=== PATIENT | male | born 1970 | race Caucasian/White ===

== ENCOUNTER 2017-10-13 01:40 | Emergency (ER) | payer SELFPAY ==
[2017-10-13] MEDS ORDERED: LIDOCAINE 1% MPF 5 ML VIAL ONE ×2 (02:11→02:28)
[2017-10-13] MEDS ORDERED: BUPIVACAINE 0.5% PF 10 ML VIAL ONE (02:12)
--- NOTE | 2017-10-13 02:55 | ER ---
Nurse's Notes [facility] Name: Wilian Bell Age: 47 yrs Sex: Male : 1970 Arrival Date: 10/13/2017 Time: 01:41 Bed 23 Private MD: Diagnosis: Laceration without foreign body of thumb without damage to nail-Left Presentation: 10/13 01:49 Presenting complaint: Patient states: I was sharpening a machete and I missed and it tl2 cut my left hand. 2 inch laceration noted above thumb on left hand, moderately bleeding, only controlled with pressure. Pt able to move all fingers on L hand. Transition of care: patient was not received from another setting of care. Complicating Factors: There are no complicating factors for this patient. Onset of symptoms was October 13, 2017 at 01:20. Risk Assessment: Do you want to hurt yourself or someone else? Patient reports no desire to harm self or others. Initial Sepsis Screen: Does the patient meet any 2 criteria? No. Patient's initial sepsis screen is negative. Does the patient have a suspected source of infection? No. Patient's initial sepsis screen is negative. Care prior to arrival: None. 01:49 Method Of Arrival: Ambulatory tl2 01:49 Acuity: GIGI 4 tl2 Triage Assessment: 01:52 General: Appears in no apparent distress. Behavior is calm, cooperative, appropriate tl2 for age. Pain: Complains of pain in dorsal aspect of proximal phalanx of left thumb. Injury Description: Laceration sustained to dorsal aspect of proximal phalanx of left thumb is clean, 2.6 to 7.5 cm long, bleeding moderately, was sustained 30-60 minutes ago. is bleeding moderately. Historical: - Allergies: 01:52 No Known Allergies; tl2 - Home Meds: 01:52 Xanax Oral [Active]; Prozac Oral [Active]; Adderall XR Oral [Active]; tl2 - PMHx: 01:52 Anxiety; tl2 - Immunization history:: Adult Immunizations up to date, Last tetanus immunization: < 5 years ago. - Social history:: Smoking status: Patient uses tobacco products, smokes one-half pack cigarettes per day. - Ebola Screening: : No symptoms or risks identified at this time. Screenin:51 Abuse screen: Denies threats or abuse. Denies injuries from another. Nutritional mg2 screening: No deficits noted. Tuberculosis screening: No symptoms or risk factors identified. Fall Risk None identified. Assessment: 01:52 General: Appears comfortable, Behavior is calm, cooperative. Pain: Complains of pain in mg2 left hand Pain does not radiate. Pain currently is 7 out of 10 on a pain scale. Quality of pain is described as aching, Pain began suddenly, 30 min ago. Is intermittent. Neuro: Level of Consciousness is awake, alert, obeys commands, Oriented to person, place, time, situation. Cardiovascular: Capillary refill < 3 seconds Patient's skin is warm and dry. Respiratory: Airway is patent Respiratory effort is even, unlabored, Respiratory pattern is regular, symmetrical. GI: No signs and/or symptoms were reported involving the gastrointestinal system. : No signs and/or symptoms were reported regarding the genitourinary system. EENT: No signs and/or symptoms were reported regarding the EENT system. Derm: Skin is intact, Skin is pink, warm \T\ dry. normal. Musculoskeletal: Circulation, motion, and sensation intact. Range of motion: intact in all extremities. Injury Description: Laceration sustained to dorsal aspect of proximal phalanx of left thumb is clean, 2.6 to 7.5 cm long, bleeding moderately, is bleeding moderately a dressing was applied. Vital Signs: 01:52 BP 132 / 91; Pulse 84; Resp 20; Temp 97.8(O); Pulse Ox 100% on R/A; Weight 72.57 kg; tl2 Height 5 ft. 8 in. (172.72 cm); Pain 0/10; 01:52 Body Mass Index 24.33 (72.57 kg, 172.72 cm) tl2 ED Course: 01:41 Patient arrived in ED. ds1 01:44 Jorge Broderick, RAZIA is Primary Nurse. mg2 01:45 Erick Bhatt PA is PHCP. cp 01:45 Jose Armando Singh MD is Attending Physician. cp 01:51 Triage completed. tl2 01:51 Patient has correct armband on for positive identification. Door closed. mg2 01:52 Arm band placed on right wrist. tl2 02:32 X-ray completed. Portable x-ray completed in exam room. Patient tolerated procedure mh1 well. 02:37 XRAY Hand LEFT 3 View In Process Unspecified. EDMS 03:15 No provider procedures requiring assistance completed. Patient did not have IV access mg2 during this emergency room visit. Orthoglass splint: Thumb spica splint applied on left forearm. Sling applied to left arm. Wound care: to laceration located on dorsal aspect of proximal phalanx of left thumb was cleaned with Betadine, irrigated with dressed with Neosporin, 4X4s, sutured with prolene 7 stitches made. Administered Medications: 03:02 Drug: Marcaine (0.5 %) 5 ml Volume: 10 ml; Route: Infiltration; mg2 03:15 Follow up: Response: No adverse reaction; Pain is decreased mg2 03:03 Drug: Lidocaine (1 %) 5 ml Volume: 20 ml; Route: Infiltration; mg2 03:15 Follow up: Response: No adverse reaction; Pain is decreased mg2 Outcome: 02:54 Discharge ordered by MD. cp 03:17 Discharged to home ambulatory. mg2 03:17 Condition: good 03:17 Discharge instructions given to patient, family, Instructed on discharge instructions, follow up and referral plans. Demonstrated understanding of instructions, follow-up care. 03:17 Patient left the ED. mg2 Signatures: Dispatcher [employer] EDMS Allyson Coles mh1 Radha Horta ds1 Erick Bhatt PA PA cp Knox, Taylor, RN RN tl2 Jorge Broderick RN RN mg2
--- NOTE | 2017-10-13 02:55 | EDPHYS ---
Physician Documentation [facility] Name: Wilian Bell Age: 47 yrs Sex: Male : 1970 Arrival Date: 10/13/2017 Time: 01:41 Bed 23 Private MD: ED Physician Jose Armando Singh HPI: 10/13 02:05 This 47 yrs old Male presents to ER via Ambulatory with complaints of cp Laceration To Hand. 02:05 The patient has a laceration occurred at home, and there are no complicating factors. cp The injury was sharpening machete. The laceration(s) is(are) located on the dorsal aspect left thumb. Onset: The symptoms/episode began/occurred just prior to arrival. Associated signs and symptoms: Pertinent positives: heavy bleeding, Pertinent negatives: numbness distal to injury, suspected foreign body. Historical: - Allergies: 01:52 No Known Allergies; tl2 - Home Meds: 01:52 Xanax Oral [Active]; Prozac Oral [Active]; Adderall XR Oral [Active]; tl2 - PMHx: 01:52 Anxiety; tl2 - Immunization history:: Adult Immunizations up to date, Last tetanus immunization: < 5 years ago. - Social history:: Smoking status: Patient uses tobacco products, smokes one-half pack cigarettes per day. - Ebola Screening: : No symptoms or risks identified at this time. ROS: 02:10 Constitutional: Negative for body aches, chills, fever, poor PO intake. cp 02:10 Eyes: Negative for injury, pain, redness, and discharge. cp 02:10 Cardiovascular: Negative for chest pain, edema, palpitations. 02:10 Respiratory: Negative for cough, shortness of breath, wheezing. 02:10 Abdomen/GI: Negative for abdominal pain, nausea, vomiting, and diarrhea. 02:10 Skin: Positive for laceration(s), of the dorsal aspect left thumb. 02:10 Neuro: Negative for numbness. 02:10 All other systems are negative. Exam: 02:15 Head/Face: Normocephalic, atraumatic. cp 02:15 Constitutional: The patient appears in no acute distress, alert, awake, non-toxic, well developed, well nourished. 02:15 Eyes: Periorbital structures: appear normal, Conjunctiva: normal, no exudate, no cp injection, Lids and lashes: appear normal, bilaterally. 02:15 ENT: External ear(s): are unremarkable, Nose: is normal, Mouth: is normal. 02:15 Chest/axilla: Inspection: normal. 02:15 Cardiovascular: Rate: normal. 02:15 Respiratory: the patient does not display signs of respiratory distress, Respirations: normal, no use of accessory muscles, no retractions, no shallow respirations. 02:15 Abdomen/GI: Exam negative for discomfort, distension, guarding, Inspection: abdomen appears normal. 02:15 Musculoskeletal/extremity: Perfusion: the extremity is normally perfused throughout, Sensation intact. Tendon exam: specific tendon testing normal through active and passive range of motion 02:15 Skin: injury, laceration(s), the wound is approximately 6 cm(s), of the dorsum left thumb, that can be described as clean, linear, with moderate bleeding. Vital Signs: 01:52 BP 132 / 91; Pulse 84; Resp 20; Temp 97.8(O); Pulse Ox 100% on R/A; Weight 72.57 kg; tl2 Height 5 ft. 8 in. (172.72 cm); Pain 0/10; 01:52 Body Mass Index 24.33 (72.57 kg, 172.72 cm) tl2 Procedures: 02:50 Splinting: Splint applied to left thumb using thumb spica. applied by nurse. Examined cp by me, post splint application: neurovascular intact, Patient tolerated well. Laceration: 02:48 Wound Repair of 6cm ( 2.4in ) subcutaneous laceration to dorsal aspect left thumb. cp Linear shaped.. Distal neuro/vascular/tendon intact. Anesthesia: Wound infiltrated with 5 mls of Lido/Marcaine. Wound prep: Moderate cleansing by me, Wound irrigation by me, Wound explored moderately. Skin closed with 7 4-0 Prolene using interrupted sutures and sterile technique. Dressed with Bacitracin, 4x4's, non-adherent dressing. Patient tolerated well. MDM: 01:46 Patient medically screened. cp 02:00 Differential diagnosis: superficial laceration, tendon injury, vascular injury. cp 02:00 Data reviewed: vital signs, nurses notes, radiologic studies, plain films. Test cp interpretation: by ED physician or midlevel provider: plain radiologic studies. Counseling: I had a detailed discussion with the patient and/or guardian regarding: the historical points, exam findings, and any diagnostic results supporting the discharge/admit diagnosis, radiology results, to return to the emergency department if symptoms worsen or persist or if there are any questions or concerns that arise at home. Response to treatment: the patient's symptoms have markedly improved after treatment, and as a result, I will discharge patient. 10/13 02:00 Order name: XRAY Hand LEFT 3 View cp 10/13 02:00 Order name: Prolene, Sutures; Complete Time: 02:26 cp 10/13 02:00 Order name: Dressing - Wound; Complete Time: 02:26 cp 10/13 02:00 Order name: Gloves, Sterile; Complete Time: 02:06 cp 10/13 02:00 Order name: Setup Suture Tray; Complete Time: 02:06 cp Administered Medications: 03:02 Drug: Marcaine (0.5 %) 5 ml Volume: 10 ml; Route: Infiltration; mg2 03:15 Follow up: Response: No adverse reaction; Pain is decreased mg2 03:03 Drug: Lidocaine (1 %) 5 ml Volume: 20 ml; Route: Infiltration; mg2 03:15 Follow up: Response: No adverse reaction; Pain is decreased mg2 Disposition: 10/13/17 02:54 Discharged to Home. Impression: Laceration without foreign body of thumb without damage to nail - Left. - Condition is Stable. - Discharge Instructions: Laceration Care, Adult. - Medication Reconciliation Form, Thank You Letter, Antibiotic Education, Prescription Opioid Use form. - Follow up: Private Physician; When: 7 - 10 days; Reason: Staple/Suture removal. - Problem is new. - Symptoms have improved. Addendum: 10/17/2017 20:24 Co-signature as Attending Physician, Jose Armando Singh MD I agree with the assessment and w a plan of care. Signatures: Dispatcher [employer] EDMS Erick Bhatt PA PA cp Knox, Taylor, RN RN tl2 Jose Armando Singh MD MD mn Jorge Broderick RN RN mg2 Corrections: (The following items were deleted from the chart) 10/13 03:17 02:54 10/13/2017 02:54 Discharged to Home. Impression: Laceration without foreign body mg2 of thumb without damage to nail - Left. Condition is Stable. Forms are Medication Reconciliation Form, Thank You Letter, Antibiotic Education, Prescription Opioid Use. Follow up: Private Physician; When: 7 - 10 days; Reason: Staple/Suture removal. Problem is new. Symptoms have improved. cp
[2017-10-13 03:23] VITALS: BP 132/91; TEMP 97.8; O2SAT 100
--- NOTE | 2017-10-13 09:23 | RAD REPORT ---
EXAM DESCRIPTION: RAD - Hand Left 3 View - 10/13/2017 2:37 am CLINICAL HISTORY: Thumb laceration, trauma, hand pain COMPARISON: None. FINDINGS: No fracture, dislocation or periosteal reaction noted. No acute bone or joint finding. Ban daging is in place. No foreign body is identified. IMPRESSION: Negative left hand examination.
== END 2017-10-13 03:17 | disposition home or self-care (01) ==
LOC: ER 01:40
PROC: 0JQK0ZZ Repair Left Hand Subcutaneous Tissue and Fascia, Open Approach (ICD-10-PCS; principal; 2017-10-13)
DX: S61.012A Laceration without foreign body of left thumb without damage to nail, initial encounter (principal); W26.8XXA Contact with other sharp object(s), not elsewhere classified, initial encounter; Y93.89 Activity, other specified; Y92.019 Unspecified place in single-family (private) house as the place of occurrence of the external cause; F17.210 Nicotine dependence, cigarettes, uncomplicated
CPT/HCPCS: 99284

== ENCOUNTER 2017-10-25 11:32 | Emergency (ER) | payer SELFPAY ==
--- NOTE | 2017-10-25 12:22 | EDPHYS ---
Physician Documentation [facility] Name: Wilian Bell Age: 47 yrs Sex: Male : 1970 Arrival Date: 10/25/2017 Time: 11:36 Bed 12 Private MD: None, None ED Physician Teto Cruz HPI: 10/25 12:15 This 47 yrs old Male presents to ER via Ambulatory with complaints of Wound pm1 Check. 12:15 Patient presents to ED for recheck of: laceration. The affected area is on the dorsal pm1 aspect of proximal phalanx of left thumb. Previous treatment: The patient was initially treated on October 13, 2017, the care was rendered at [facility], Treatment type: The patient's original treatment included sutures, Outpatient prescription(s): The patient was given prescription(s) for nothing. Progress: The patient reports Improved but patient decided to remove the sutures by himself yesterday and the wound is not completely healed. The patient has been recently seen at the [facility] Emergency Department, Last saw a health care provider for laceration repair on 10/13/2017. Did not follow up with anybody. Historical: - Allergies: 12:08 No Known Drug Allergies; hj - Home Meds: 12:08 Adderall XR Oral [Active]; Prozac Oral [Active]; Xanax Oral [Active]; hj - PMHx: 12:08 Anxiety; hj - PSHx: 12:08 hand; lung; hj - Immunization history:: Adult Immunizations. - Social history:: Smoking status: Patient uses tobacco products, smokes one-half pack cigarettes per day, Patient/guardian denies using alcohol. - Ebola Screening: : Patient negative for fever greater than or equal to 101.5 degrees Fahrenheit, and additional compatible Ebola Virus Disease symptoms Patient denies exposure to infectious person Patient denies travel to an Ebola-affected area in the 21 days before illness onset. ROS: 12:15 Constitutional: Negative for fever, chills, and weight loss, Eyes: Negative for injury, pm1 pain, redness, and discharge, ENT: Negative for injury, pain, and discharge, Neck: Negative for injury, pain, and swelling, Cardiovascular: Negative for chest pain, palpitations, and edema, Respiratory: Negative for shortness of breath, cough, wheezing, and pleuritic chest pain, Abdomen/GI: Negative for abdominal pain, nausea, vomiting, diarrhea, and constipation, Back: Negative for injury and pain, : Negative for injury, bleeding, discharge, and swelling, MS/Extremity: Negative for injury and deformity, Neuro: Negative for headache, weakness, numbness, tingling, and seizure. 12:15 Skin: Positive for laceration repair to dorsal aspect of left thumb. Exam: 12:15 Constitutional: This is a well developed, well nourished patient who is awake, alert, pm1 and in no acute distress. Head/Face: Normocephalic, atraumatic. Neck: Trachea midline, no thyromegaly or masses palpated, and no cervical lymphadenopathy. Supple, full range of motion without nuchal rigidity, or vertebral point tenderness. No Meningismus. Chest/axilla: Normal chest wall appearance and motion. Nontender with no deformity. No lesions are appreciated. Cardiovascular: Regular rate and rhythm with a normal S1 and S2. No gallops, murmurs, or rubs. Normal PMI, no JVD. No pulse deficits. Respiratory: Lungs have equal breath sounds bilaterally, clear to auscultation and percussion. No rales, rhonchi or wheezes noted. No increased work of breathing, no retractions or nasal flaring. Abdomen/GI: Soft, non-tender, with normal bowel sounds. No distension or tympany. No guarding or rebound. No evidence of tenderness throughout. Back: No spinal tenderness. No costovertebral tenderness. Full range of motion. 12:15 Skin: Wound recheck: Suture laceration closure: no drainage, no erythema, no swelling, mild dehiscence due to patient removing the sutures himself. Vital Signs: 12:09 BP 128 / 87; Pulse 71; Resp 18; Temp 97.4(TE); Pulse Ox 100% on R/A; Weight 72.57 kg; hj Height 5 ft. 8 in. (172.72 cm); Pain 2/10; 12:09 Body Mass Index 24.33 (72.57 kg, 172.72 cm) MDM: 12:15 Patient medically screened. pm1 12:21 Data reviewed: vital signs. Data interpreted: Pulse oximetry: on room air is 100 %. pm1 Interpretation: normal. Counseling: I had a detailed discussion with the patient and/or guardian regarding: the historical points, exam findings, and any diagnostic results supporting the discharge/admit diagnosis, the need for outpatient follow up, to return to the emergency department if symptoms worsen or persist or if there are any questions or concerns that arise at home. Administered Medications: No medications were administered Disposition: 15:23 Co-signature as Attending Physician, Teto Cruz MD. rn Disposition: 10/25/17 12:22 Discharged to Home. Impression: Laceration without foreign body of left thumb without damage to nail. - Condition is Stable. - Discharge Instructions: Laceration Care, Adult, Nonsutured Laceration Care. - Prescriptions for Keflex 500 mg Oral Capsule - take 1 capsule by ORAL route every 12 hours for 10 days; 20 capsule. - Medication Reconciliation Form, Thank You Letter, Antibiotic Education form. - Follow up: Emergency Department; When: As needed; Reason: Worsening of condition. Follow up: Private Physician; When: 2 - 3 days; Reason: Recheck today's complaints, Continuance of care, Re-evaluation by your physician. - Problem is new. - Symptoms have improved. Signatures: Teto Cruz MD MD rn Joaquin, Henry, RN RN hj Marinas, Patrick, NP DRUM TESTER pm1 Corrections: (The following items were deleted from the chart) 12:38 12:22 10/25/2017 12:22 Discharged to Home. Impression: Laceration without foreign body hj of left thumb without damage to nail. Condition is Stable. Forms are Medication Reconciliation Form, Thank You Letter, Antibiotic Education, Prescription Opioid Use. Follow up: Emergency Department; When: As needed; Reason: Worsening of condition. Follow up: Private Physician; When: 2 - 3 days; Reason: Recheck today's complaints, Continuance of care, Re-evaluation by your physician. Problem is new. Symptoms have improved. pm1
--- NOTE | 2017-10-25 12:22 | ER ---
Nurse's Notes [facility] Name: Wilian Bell Age: 47 yrs Sex: Male : 1970 Arrival Date: 10/25/2017 Time: 11:36 Bed 12 Private MD: None, None Diagnosis: Laceration without foreign body of left thumb without damage to nail Presentation: 10/25 12:05 Presenting complaint: Patient states: was here on the for suturing on my L lower hj arm, i removed my sutures yesterday, i feel like its open; denies drainage and pain;. Transition of care: patient was not received from another setting of care. Onset of symptoms was October 25, 2017. Risk Assessment: Do you want to hurt yourself or someone else? Patient reports no desire to harm self or others. Initial Sepsis Screen: Does the patient meet any 2 criteria? No. Patient's initial sepsis screen is negative. Does the patient have a suspected source of infection? No. Patient's initial sepsis screen is negative. Care prior to arrival: None. 12:05 Method Of Arrival: Ambulatory 12:05 Acuity: GIGI 4 hj Triage Assessment: 12:08 General: Appears in no apparent distress. uncomfortable, Behavior is calm, cooperative, hj appropriate for age. Pain: Complains of pain in left arm. Historical: - Allergies: 12:08 No Known Drug Allergies; hj - Home Meds: 12:08 Adderall XR Oral [Active]; Prozac Oral [Active]; Xanax Oral [Active]; hj - PMHx: 12:08 Anxiety; hj - PSHx: 12:08 hand; lung; hj - Immunization history:: Adult Immunizations. - Social history:: Smoking status: Patient uses tobacco products, smokes one-half pack cigarettes per day, Patient/guardian denies using alcohol. - Ebola Screening: : Patient negative for fever greater than or equal to 101.5 degrees Fahrenheit, and additional compatible Ebola Virus Disease symptoms Patient denies exposure to infectious person Patient denies travel to an Ebola-affected area in the 21 days before illness onset. Screenin:08 Abuse screen: Denies threats or abuse. Denies injuries from another. Nutritional hj screening: No deficits noted. Tuberculosis screening: No symptoms or risk factors identified. Fall Risk None identified. Vital Signs: 12:09 BP 128 / 87; Pulse 71; Resp 18; Temp 97.4(TE); Pulse Ox 100% on R/A; Weight 72.57 kg; hj Height 5 ft. 8 in. (172.72 cm); Pain 2/10; 12:09 Body Mass Index 24.33 (72.57 kg, 172.72 cm) ED Course: 11:36 Patient arrived in ED. mr 11:37 None, None is Private Physician. mr 12:07 Triage completed. hj 12:08 Arm band placed on right wrist. hj 12:09 Patient has correct armband on for positive identification. Bed in low position. Call hj light in reach. Side rails up X 1. 12:10 Dale Beach RN is Primary Nurse. hj 12:11 Eugenio Johnson NP is PHCP. pm1 12:11 Teto Cruz MD is Attending Physician. pm1 12:37 No provider procedures requiring assistance completed. Patient did not have IV access hj during this emergency room visit. Administered Medications: No medications were administered Outcome: 12:22 Discharge ordered by MD. pm1 12:37 Discharged to home ambulatory. hj 12:37 Condition: stable 12:37 Discharge instructions given to patient, Instructed on discharge instructions, follow up and referral plans. medication usage, wound care, Demonstrated understanding of instructions, follow-up care, medications, wound care, Prescriptions given X 1. 12:38 Patient left the ED. Signatures: Sandrine Osborne mr Dale Beach, RN RN Eugenio Rivero NP MANAGER CATH LAB pm1 Corrections: (The following items were deleted from the chart) 12:10 12:09 Pulse 71bpm; Resp 18bpm; Pulse Ox 100% RA; Temp 97.4F Temporal; 72.57 kg; Height hj 5 ft. 8 in.; BMI: 24.3; Pain 2/10; hj
[2017-10-25 12:41] VITALS: BP 128/87; TEMP 97.4; O2SAT 100
== END 2017-10-25 12:38 | disposition home or self-care (01) ==
LOC: ER 11:32
DX: S61.012D Laceration without foreign body of left thumb without damage to nail, subsequent encounter (principal); F41.9 Anxiety disorder, unspecified; F17.210 Nicotine dependence, cigarettes, uncomplicated
CPT/HCPCS: 99282

== ENCOUNTER 2021-05-31 15:08 | Emergency (ER) | payer SELFPAY ==
[2021-05-31 15:59] LABS: Absolute Lymphocytes (CBC) 1.5 K/uL (0.7-4.9); Hematocrit 38.8 % (39.6-49.0); MPV 8.1 fL (7.6-11.3)
[2021-05-31 16:02] LABS: Protime INR 0.92
[2021-05-31 16:26] LABS: ALT/SGPT 42 U/L (12-78); AST/SGOT 27 U/L (15-37); Albumin 3.7 g/dL (3.4-5.0); Alkaline Phosphatase 99 U/L (45-117); BUN Blood Urea Nitrogen 19 mg/dL (7-18); Bicarbonate 25 mmol/L (21-32); Bilirubin Total 0.4 mg/dL (0.2-1.0); Creatine Phosphokinase 121 U/L (39-308); Glucose Level 111 mg/dL (74-106); Magnesium 2.4 mg/dL (1.8-2.4); NT PRO-BNP 71 pg/mL (<125); Potassium 3.8 mmol/L (3.5-5.1); Protein, Total 7.3 g/dL (6.4-8.2); Sodium Level 138 mmol/L (136-145)
[2021-05-31 16:33] LABS: Bilirubin Direct < 0.1 mg/dL (0-0.2)
--- NOTE | 2021-05-31 16:50 | RAD REPORT ---
EXAM DESCRIPTION: Miryam Single View05/31/2021 4:05 pm CLINICAL HISTORY: sob COMPARISON: 2013 FINDINGS: The lungs appear clear of acute infiltrate. The heart is normal size IMPRESSION: No acute abnormalities displayed
[2021-05-31] MEDS ORDERED: FUROSEMIDE 20 MG/ 2ML VIAL ONE (17:03)
--- NOTE | 2021-05-31 17:33 | RAD REPORT ---
EXAM DESCRIPTION: CT - Chest For Pe Angio - 05/31/2021 5:20 pm CLINICAL HISTORY: Chest pain COMPARISON: 2013 TECHNIQUE: Dynamically enhanced axial 3 mm thick images of the chest were obtained during administra tion of <100> mL Isovue 370 IV contrast. Coronal and oblique reconstruction images were generated and reviewed. Exam utilizes a protocol for optimal evaluation of pulmonary arterial tree. Maximum intensity projections 3D imaging was utilized All CT scans are performed using dose optimization technique as appropriate and may include automated exposure control or mA/KV adjustment according to patient size. FINDINGS: A pulmonary embolus is not seen. A thoracic aortic aneurysm is not noted. A pleural effusion is not seen. A pericardial effusion is not seen. A lung consolidation is not present. IMPRESSION: Negative for a pulmonary embolism.
--- NOTE | 2021-05-31 18:41 | RAD REPORT ---
EXAM DESCRIPTION: USExtrem Venous W Compress Bil05/31/2021 6:33 pm CLINICAL HISTORY: Leg swelling COMPARISON: none FINDINGS: The common femoral, superficial femoral, popliteal and posterior tibial veins bilaterally are compressible and demonstrate augmentation. Doppler demonstrates good flow. IMPRESSION: No evidence of deep venous thrombosis involving either lower extremity.
--- NOTE | 2021-05-31 19:02 | ER ---
Nurse's Notes [facility] Name: Wilian Bell Age: 50 yrs Sex: Male : 1970 Arrival Date: 05/31/2021 Time: 15:12 Bed 17 Private MD: Diagnosis: Edema, unspecified;Shortness of breath Presentation: 05/31 15:16 Chief complaint: Patient states: he is coming to the ED today to be evaluated for ap3 bilateral lower extremity swelling. Patient states he began to notice the swelling last week, but due to the swelling not going down with elevation, he wanted to come be evaluated today. Coronavirus screen: At this time, the client does not indicate any symptoms associated with coronavirus-19. Ebola Screen: No symptoms or risks identified at this time. Initial Sepsis Screen: Does the patient meet any 2 criteria? No. Patient's initial sepsis screen is negative. Does the patient have a suspected source of infection? No. Patient's initial sepsis screen is negative. Risk Assessment: Do you want to hurt yourself or someone else? Patient reports no desire to harm self or others. Onset of symptoms was May 24, 2021. 15:16 Method Of Arrival: Ambulatory ap3 15:16 Acuity: GIGI 3 ap3 Triage Assessment: 15:19 General: Appears in no apparent distress. Behavior is calm, cooperative, appropriate ap3 for age. Pain: Complains of pain in right foot and left foot. Neuro: Level of Consciousness is awake, alert, obeys commands, Oriented to person, place, time, situation, Appropriate for age Gait is steady, Speech is normal. Cardiovascular: Patient's skin is warm and dry. Respiratory: Airway is patent Respiratory effort is even, unlabored. Musculoskeletal: Swelling present in right leg and left leg. Historical: - Allergies: 15:18 Codeine; ap3 - Home Meds: 15:18 Xanax Oral [Active]; Adderall XR Oral [Active]; ap3 - PMHx: 15:18 Anxiety; ap3 - Immunization history:: Client reports having NOT received the Covid vaccine. Flu vaccine is not up to date. - Social history:: Smoking status: Patient denies any tobacco usage or history of. Screenin:21 Abuse screen: Denies threats or abuse. Nutritional screening: No deficits noted. ap3 Tuberculosis screening: No symptoms or risk factors identified. 15:36 Fall Risk None identified. ic1 Assessment: 15:36 General: Appears comfortable, Behavior is calm, cooperative. Pain: Denies pain. Pain ic1 does not radiate. Pain began. Neuro: Level of Consciousness is awake, alert, obeys commands, Oriented to person, place, time, situation. Cardiovascular: Reports ble swelling x 1 week and cp. Respiratory: Reports shortness of breath. GI: No deficits noted. : No deficits noted. EENT: No deficits noted. Derm: No deficits noted. Musculoskeletal: No deficits noted. 16:31 Reassessment: Patient appears in no apparent distress at this time. No changes from ic1 previously documented assessment. Patient and/or family updated on plan of care and expected duration. Pain level reassessed. Patient is alert, oriented x 3, equal unlabored respirations, skin warm/dry/pink. 18:50 Reassessment: Patient appears in no apparent distress at this time. No changes from ic1 previously documented assessment. Patient and/or family updated on plan of care and expected duration. Pain level reassessed. Patient is alert, oriented x 3, equal unlabored respirations, skin warm/dry/pink. Patient denies pain at this time. 20:06 Reassessment: Cleared for discharge to home by the provider. The patient states he sv1 feels better.. Vital Signs: 15:16 BP 111 / 83; Pulse 108; Resp 17; Temp 98.4; Pulse Ox 97% ; Weight 79.38 kg; Height 5 ap3 ft. 7 in. (170.18 cm); 15:34 BP 108 / 64; Pulse 97; Resp 18; Pulse Ox 97% on R/A; ic1 16:30 BP 117 / 81; Pulse 85; Resp 18; Pulse Ox 95% on R/A; ic1 18:53 BP 106 / 66; Pulse 81; Resp 18; Pulse Ox 100% on R/A; ic1 15:16 Body Mass Index 27.41 (79.38 kg, 170.18 cm) ap3 ED Course: 15:12 Patient arrived in ED. ja2 15:18 Triage completed. ap3 15:21 Arm band placed on left wrist. ap3 15:23 Erick Bhatt PA is PHCP. cp 15:23 Deandre Hernández MD is Attending Physician. cp 15:24 Lizeth Campos, RN is Primary Nurse. ic1 15:35 No provider procedures requiring assistance completed. Inserted saline lock: 20 gauge ic1 in right forearm, using aseptic technique. Blood collected. Patient maintains SpO2 saturation greater than 95% on room air. 15:36 Patient has correct armband on for positive identification. Placed in gown. Bed in low ic1 position. Side rails up X2. studio camera operator on. Pulse ox on. NIBP on. Door closed. Lights dimmed. Warm blanket given. 16:05 XRAY Chest (1 view) In Process Unspecified. EDMS 17:20 CT Chest For PE Angio In Process Unspecified. EDMS 18:33 US Extremity Venous W Compression Robby In Process Unspecified. EDMS 18:59 Jackson Gonzalez MD is Referral Physician. cp 20:05 IV discontinued. sv1 Administered Medications: 17:05 Drug: Lasix (furosemide) 20 mg Route: IVP; Site: right antecubital; ic1 Outcome: 19:00 Discharge ordered by . cp 20:05 Discharged to home ambulatory. sv1 20:05 Condition: improved 20:05 Discharge instructions given to patient. 20:08 Patient left the ED. sv1 Signatures: Dispatcher [employer] EDMS Erick Bhatt PA PA cp Fanny Motta RN RN Debi Schneider Steven, RN RN sv1 Lizeth Campos RN RN ic1
--- NOTE | 2021-05-31 19:02 | EDPHYS ---
Physician Documentation [facility] Name: Wilian Bell Age: 50 yrs Sex: Male : 1970 Arrival Date: 05/31/2021 Time: 15:12 Bed 17 Private MD: ED Physician Deandre Hernández HPI: 05/31 15:45 This 50 yrs old Male presents to ER via Ambulatory with complaints of Leg Swelling, cp Feet Swelling, Chest Tightness. 15:45 The patient has shortness of breath with light activity. cp 15:45 Onset: The symptoms/episode began/occurred last week. Duration: The symptoms are cp continuous, and are steadily getting worse. 15:45 Associated signs and symptoms: Pertinent negatives: chest pain, productive cough, cp diaphoresis, dizziness, fever. 15:45 Severity of symptoms: in the emergency department the symptoms are unchanged despite cp home interventions. Historical: - Allergies: 15:18 Codeine; ap3 - Home Meds: 15:18 Xanax Oral [Active]; Adderall XR Oral [Active]; ap3 - PMHx: 15:18 Anxiety; ap3 - Immunization history:: Client reports having NOT received the Covid vaccine. Flu vaccine is not up to date. - Social history:: Smoking status: Patient denies any tobacco usage or history of. ROS: 15:50 Constitutional: Negative for body aches, chills, fever, poor PO intake. cp 15:50 Eyes: Negative for injury, pain, redness, and discharge. cp 15:50 ENT: Negative for ear pain, sore throat, difficulty swallowing, difficulty handling secretions. 15:50 Cardiovascular: Positive for edema, Negative for chest pain, palpitations. 15:50 Respiratory: Positive for shortness of breath, on exertion. Negative for cough, wheezing. 15:50 Abdomen/GI: Negative for abdominal pain, nausea, vomiting, and diarrhea. 15:50 Back: Negative for pain at rest, pain with movement. 15:50 Skin: Negative for cellulitis, rash. 15:50 Neuro: Negative for altered mental status, dizziness, headache, syncope, weakness. 15:50 All other systems are negative. Exam: 15:45 ECG was reviewed by the Attending Physician. cp 15:55 Constitutional: The patient appears in no acute distress, alert, awake, cp non-diaphoretic, non-toxic, well developed, well nourished. 15:55 Head/Face: Normocephalic, atraumatic. cp 15:55 Eyes: Periorbital structures: appear normal, Conjunctiva: normal, no exudate, no injection, Sclera: no appreciated abnormality, Lids and lashes: appear normal, bilaterally. 15:55 ENT: External ear(s): are unremarkable, Nose: is normal, Mouth: Lips: moist, Oral mucosa: pink and intact, moist, Posterior pharynx: Airway: no evidence of obstruction, patent. 15:55 Neck: ROM/movement: is normal, is supple, without pain, no range of motions limitations. 15:55 Chest/axilla: Inspection: normal, Palpation: is normal, no crepitus, no tenderness. 15:55 Cardiovascular: Rate: normal, Rhythm: regular, Heart sounds: murmur, not appreciated, Edema: pedal edema, that is mild, ankle edema, that is mild, JVD: is not appreciated. 15:55 Respiratory: the patient does not display signs of respiratory distress, Respirations: normal, no use of accessory muscles, no retractions, labored breathing, is not present, Breath sounds: are clear throughout, no decreased breath sounds, no stridor, no wheezing. 15:55 Abdomen/GI: Inspection: abdomen appears normal, Palpation: abdomen is soft and non-tender, in all quadrants. 15:55 Back: pain, is absent, ROM is normal. 15:55 Skin: cellulitis, is not appreciated, no rash present. 15:55 Neuro: Orientation: to person, place \T\ time. Mentation: is normal, Motor: moves all fours, strength is normal, Sensation: is normal. Vital Signs: 15:16 BP 111 / 83; Pulse 108; Resp 17; Temp 98.4; Pulse Ox 97% ; Weight 79.38 kg; Height 5 ap3 ft. 7 in. (170.18 cm); 15:34 BP 108 / 64; Pulse 97; Resp 18; Pulse Ox 97% on R/A; ic1 16:30 BP 117 / 81; Pulse 85; Resp 18; Pulse Ox 95% on R/A; ic1 18:53 BP 106 / 66; Pulse 81; Resp 18; Pulse Ox 100% on R/A; ic1 15:16 Body Mass Index 27.41 (79.38 kg, 170.18 cm) ap3 MDM: 15:45 Patient medically screened. cp 16:00 Differential diagnosis: CHF exacerbation, Myocardial Infarction pneumonia, Pneumothorax cp pulmonary edema, Pulmonary Embolism Unstable Angina DVT. 05/31 15:40 Order name: Basic Metabolic Panel; Complete Time: 16:36 cp 05/31 16:36 Interpretation: Normal except: CL 109; GLUC 111; BUN 19; GFR 87. cp 05/31 15:40 Order name: CBC with Diff; Complete Time: 16:36 cp 05/31 16:36 Interpretation: Normal except: RBC 4.10; HGB 13.0; HCT 38.8; MCV 94.6. cp 05/31 15:40 Order name: LFT's; Complete Time: 16:36 cp 05/31 16:37 Interpretation: Normal except: GLOB 3.6; A/G 1.0. cp / 15:40 Order name: Magnesium; Complete Time: 16:36 cp 05/31 15:40 Order name: NT PRO-BNP; Complete Time: 16:36 cp 05/31 15:40 Order name: PT-INR; Complete Time: 16:36 cp / 15:40 Order name: Troponin HS; Complete Time: 16:36 cp 05/31 15:40 Order name: XRAY Chest (1 view); Complete Time: 17:08 cp 05/31 17:08 Interpretation: Report review. cp 05/31 15:40 Order name: EKG; Complete Time: 15:40 cp 05/31 15:40 Order name: CK; Complete Time: 16:36 cp 05/31 15:40 Order name: Ptt, Activated; Complete Time: 16:36 cp 14 16:42 Order name: US Extremity Venous W Compression Robby; Complete Time: 18:43 cp / 18:43 Interpretation: Report reviewed. cp 05/31 17:09 Order name: CT Chest For PE Angio; Complete Time: 18:43 cp 05/31 18:43 Interpretation: Report reviewed. cp 05/31 15:40 Order name: Cardiac monitoring; Complete Time: 15:46 cp 05/31 15:40 Order name: EKG - Nurse/Tech; Complete Time: 15:46 cp 05/31 15:40 Order name: IV Saline Lock; Complete Time: 15:46 cp 05/31 15:40 Order name: Labs collected and sent; Complete Time: 15:47 cp 05/31 15:40 Order name: O2 Per Protocol; Complete Time: 15:47 cp 05/31 15:40 Order name: O2 Sat Monitoring; Complete Time: 15:47 cp EC:45 Rate is 90 beats/min. Rhythm is regular. CO interval is normal. QRS interval is normal. cp QT interval is normal. T waves are Inverted in lead aVR. Interpreted by me. Reviewed by me. Administered Medications: 17:05 Drug: Lasix (furosemide) 20 mg Route: IVP; Site: right antecubital; ic1 Disposition: 19:41 Co-signature as Attending Physician, Deandre Hernández MD I agree with the assessment and kdr plan of care. Disposition Summary: 05/31/21 19:00 Discharge Ordered Location: Home cp Problem: new cp Symptoms: have improved cp Condition: Stable cp Diagnosis - Edema, unspecified cp - Shortness of breath cp Followup: cp - With: Jackson Gonzalez MD - When: 2 - 3 days - Reason: Recheck today's complaints Discharge Instructions: - Discharge Summary Sheet cp - Edema cp - Shortness of Breath, Adult cp - Aspirin and Your Heart cp - Form - Excuse from Work, School, or Physical Activity cp Forms: - Medication Reconciliation Form cp - Thank You Letter cp - Antibiotic Education cp - Prescription Opioid Use cp Prescriptions: - Lasix 20 mg Oral Tablet - take 1 tablet by ORAL route once daily for 5 days; 5 tablet; Refills: 0, cp Product Selection Permitted Signatures: Dispatcher [employer] Deandre Ho MD MD kdr Erick Bhatt PA PA cp Fanny Motta, RN RN ap3 Lizeth Campos RN RN ic1
[2021-05-31 20:22] VITALS: TEMP 98.4
[2021-05-31 20:23] VITALS: BP 106/66; O2SAT 100
--- NOTE | 2021-06-02 07:27 | EKG ---
Test Date: 2021-05-31 Test Time: 14:38:37 Dyer Helper: IC MEASUREMENT RESULTS: Intervals: Rate: 90 DE: 136 QRSD: 84 QT: 360 QTc: 440 Maynard: P: 55 DE: 136 QRS: 81 T: 57 INTERPRETIVE STATEMENTS: Normal sinus rhythm Normal ECG Compared to ECG 03/08/2014 10:09:27 Atrial premature complex(es) no longer present Electronically Signed On 06-02-21 07:22:33 CDT by Anthony Saleem
== END 2021-05-31 20:08 | disposition home or self-care (01) ==
LOC: ER 15:08
DX: R60.9 Edema, unspecified (principal); R06.02 Shortness of breath; F41.9 Anxiety disorder, unspecified; Z88.5 Allergy status to narcotic agent
CPT/HCPCS: 36415; 71045; 71275; 80048; 80076; 82550; 83735; 83880; 84484; 85025; 85610; 85730; 93005; 93970; 96374; 99285; J1940; Q9967